=== PATIENT | female | born 1975 | race Caucasian/White ===

== ENCOUNTER 2017-07-28 20:38 | Observation (INO) | payer OTHER ==
[~2017-07-28] VITALS: Ht 167.6 cm; Wt 64.2 kg
[2017-07-28 22:01] LABS: BASOPHIL (%) 0.3 % (0-1); EOSINOPHIL (%) 0.9 % (0-5); HEMATOCRIT 31.6 % (36.0-46.0); HEMOGLOBIN 11.2 G/DL (11.9-15.5); LYMPHOCYTE (%) 54.6 % (15-42); LYMPHOCYTE COUNT 1.9 K/uL (1.0-2.8); MCH 30.3 PG (29.0-34.0); MCHC 35.4 G/DL (30.0-36.0); MCV 85.4 FL (83-99); MONOCYTE (%) 6.6 % (3-12); MONOCYTE COUNT 0.2 K/uL (0-0.8); NEUTROPHIL (%) 37.6 % (45-76); NEUTROPHIL COUNT 1.3 K/uL (1.8-6.4); PLATELET COUNT 146 K/uL (156-360); RBC DIS.WIDTH-CV 14.7 % (11.8-14.6); RBC DIS.WIDTH-SD 45.6 % (39-53); WHITE BLOOD COUNT 3.5 K/uL (4.1-10.2)
[2017-07-28 22:09] LABS: ALBUMIN 3.7 g/dL (3.2-4.8); CHLORIDE 97 mEq/L (99-109); POTASSIUM 4.6 mEq/L (3.7-5.4); SODIUM 129 mEq/L (136-147)
[2017-07-28 22:11] LABS: GLUCOSE 83 mg/dL (70-99)
[2017-07-28 22:12] LABS: TOTAL PROTEIN 6.5 g/dL (6.4-8.3)
[2017-07-28 22:13] LABS: TOTAL BILIRUBIN 0.2 mg/dL (0.0-1.0)
[2017-07-28 22:15] LABS: ALKALINE PHOSPHATASE 105 IU/L (3-129); CREATININE 0.7 mg/dL (0.6-1.3); GFR ESTIMATE (CALCULATED) > 59 mL/min/
[2017-07-28 22:16] LABS: UREA NITROGEN (BUN) 11 mg/dL (9-23)
[2017-07-28 22:17] LABS: AST (GOT) 8 IU/L (2-34)
[2017-07-28 22:18] LABS: ALT (GPT) 8 IU/L (3-49); CREATINE KINASE 38 IU/L (1-294); TOTAL CK 38 IU/L (1-294)
[2017-07-28 22:24] LABS: CK-MB 1.4 ng/mL (0.0-4.9); CKMB RELATIVE INDEX 3.7 (0.0-3.9); QUANTITATIVE HCG < 4.0 MIU/ML
[2017-07-28] MEDS ORDERED: BACLOFEN20 MG PO (23:02)
[2017-07-28] MEDS ORDERED: NEURONTIN600 MG PO (23:02)
[2017-07-28] MEDS ORDERED: PROMETHAZINE HC25 M1 PO (23:03)
[2017-07-28] MEDS ORDERED: OXTELLAR XR150 MG PO (23:03)
[2017-07-28] MEDS ORDERED: RITALIN10 MG PO (23:04)
[2017-07-28] MEDS ORDERED: MORPHINE SULFAT15 MG PO (23:04)
[2017-07-28] MEDS ORDERED: NEXIUM40 MG PO (23:04)
[2017-07-28] MEDS ORDERED: SUMATRIPTAN SU100 MG PO (23:05)
[2017-07-28] MEDS ORDERED: ZOLOFT100 MG PO (23:05)
[2017-07-28] MEDS ORDERED: MORPHINE SULFAT60 MG PO (23:05)
[2017-07-28] MEDS ORDERED: SUMATRIPTA4 MG/0.5 M SC (23:06)
[2017-07-28] MEDS ORDERED: LINZESS290 MCG PO (23:06)
[2017-07-28] MEDS ORDERED: ATARAX10 MG PO (23:07)
[2017-07-28] MEDS ORDERED: BENTYL10 MG PO (23:08)
[2017-07-28] MEDS ORDERED: PLEGRIDY P125 MCG/0. SC (23:08)
[2017-07-28] MEDS ORDERED: ZANTAC300 MG PO (23:09)
[2017-07-28] MEDS ORDERED: VIMPAT50 MG PO (23:09)
[2017-07-28] MEDS ORDERED: CALTRATE 600 +1 EAC1 PO (23:10)
[2017-07-28] MEDS ORDERED: TUMS500 MG PO (23:10)
[2017-07-28] MEDS ORDERED: DULCOLAX5 MG PO (23:11)
[2017-07-28] MEDS ORDERED: TYLENOL EXTRA500 MG PO (23:12)
[2017-07-28] MEDS ORDERED: SENNA8.6 MG PO (23:12)
[2017-07-28] MEDS ORDERED: FLEET ENEMA-AD118 ML PR (23:13)
[2017-07-29 00:58] LABS: APPEARANCE CLOUDY ((CLEAR)); BILIRUBIN NEGATIVE; BLOOD NEGATIVE; COLOR YELLOW ((YELLOW)); GLUCOSE (STRIP) NEGATIVE; KETONES NEGATIVE; LEUKOCYTES TRACE; NITRITE NEGATIVE; PROTEIN (STRIP) 30; SPECIFIC GRAVITY 1.032 (1.000-1.030); UROBILINOGEN 0.2 MG/DL (0.2-1.0)
[2017-07-29 01:07] LABS: BACTERIA RARE /HPF; EPITHELIAL CELLS 1+ /HPF; MUCUS TRACE /LPF; RED BLOOD CELLS 0-5 /HPF (0-5); UCUL ADDED? NO; WHITE BLOOD CELLS 0-5 /HPF (0-5)
[2017-07-29 02:05] VITALS: BP 129/66
[2017-07-29 05:08] LABS: HEMATOCRIT 29.6 % (36.0-46.0); HEMOGLOBIN 10.3 G/DL (11.9-15.5); MCH 29.9 PG (29.0-34.0); MCHC 34.8 G/DL (30.0-36.0); MCV 85.8 FL (83-99); PLATELET COUNT 136 K/uL (156-360); RBC DIS.WIDTH-CV 14.7 % (11.8-14.6); RBC DIS.WIDTH-SD 46.4 % (39-53); RED BLOOD COUNT 3.45 M/uL (3.80-5.20); WHITE BLOOD COUNT 2.8 K/uL (4.1-10.2)
[2017-07-29 05:12] VITALS: BP 124/69
[2017-07-29 05:32] LABS: CHLORIDE 97 MEQ/L (99-109); CREATININE 0.7 MG/DL (0.6-1.3); GFR ESTIMATE (CALCULATED) > 59 mL/min/; GLUCOSE 92 mg/dL (70-99); POTASSIUM 3.9 MEQ/L (3.7-5.4); SODIUM 130 MEQ/L (136-147); UREA NITROGEN (BUN) 11 mg/dL (9-23)
[2017-07-29 07:08] VITALS: BP 138/77
[2017-07-29 07:58] LABS: THYROTROPIN (TSH) 2.6 MIU/L (0.4-5.5)
[2017-07-29 11:27] VITALS: BP 167/87
[2017-07-29 15:28] VITALS: BP 140/84
[2017-07-29 19:38] VITALS: BP 121/74
[2017-07-30 00:17] VITALS: BP 141/88
[2017-07-30 04:35] VITALS: BP 110/54
[2017-07-30 05:25] LABS: BASOPHIL (%) 0 % (0-1); HEMATOCRIT 31.4 % (36.0-46.0); IMM.RETIC FRACTION 3.3 % (3-19); LYMPHOCYTE (%) 44.1 % (15-42); LYMPHOCYTE COUNT 1.3 K/uL (1.0-2.8); MCH 29.9 PG (29.0-34.0); MCV 85.3 FL (83-99); MONOCYTE (%) 5.7 % (3-12); MONOCYTE COUNT 0.2 K/uL (0-0.8); NEUTROPHIL (%) 49.2 % (45-76); NEUTROPHIL COUNT 1.5 K/uL (1.8-6.4); PLATELET COUNT 166 K/uL (156-360); RBC DIS.WIDTH-CV 14.8 % (11.8-14.6); RBC DIS.WIDTH-SD 46.1 % (39-53); RED BLOOD COUNT 3.68 M/uL (3.80-5.20); RETIC HGB EQUIVALENT 34.7 (28-36); RETICULOCYTE COUNT 0.5 % (0.5-1.8)
[2017-07-30 05:44] LABS: PTT 31.8 SEC (25-37)
[2017-07-30 05:55] LABS: CHLORIDE 105 MEQ/L (99-109); CREATININE 0.6 MG/DL (0.6-1.3); GFR ESTIMATE (CALCULATED) > 59 mL/min/; GLUCOSE 103 mg/dL (70-99); POTASSIUM 4.1 MEQ/L (3.7-5.4); SODIUM 135 MEQ/L (136-147); UREA NITROGEN (BUN) 5 mg/dL (9-23)
[2017-07-30 05:58] LABS: LACTATE DEHYDROGENASE 101 IU/L (20-246)
[2017-07-30 08:00] LABS: FERRITIN 34 NG/ML (10-291)
[2017-07-30 08:06] LABS: FOLIC ACID (FOLATE) 5.3 NG/ML (5.0-22.0)
[2017-07-30] MEDS ORDERED: VIMPAT50 MG PO (09:06)
[2017-07-30] MEDS ORDERED: CYANOCOBAL1000 MCG/2 SC (09:37)
[2017-07-30 11:09] LABS: HEPATITIS B SURFACE ANTIGEN Nonreactive; HEPATITIS C ANTIBODY Nonreactive
[2017-07-30 11:10] LABS: ANTI-HEPATITIS B CORE (TOTAL) Nonreactive; HIV-1/2 AB/AG COMBO Nonreactive
[2017-07-30 11:15] LABS: HEPATITIS B SURFACE ANTIBODY REACTIVE
[2017-07-30 11:53] VITALS: BP 126/74
== END 2017-07-30 15:50 | disposition home or self-care (01) ==
LOC: EME → EDBD 20:38 → EME 20:38 → EDOF 07-29 00:29 → ENRESERV 07-29 00:30 → 4SOUTH 07-29 01:41
PROVIDERS: Emergency Medicine; Hospitalist; Internal Medicine; Internal Medicine Medical Oncology
DX: G40.909 Epilepsy, unspecified, not intractable, without status epilepticus (principal); E87.1 Hypo-osmolality and hyponatremia; D61.818 Other pancytopenia; E53.8 Deficiency of other specified B group vitamins; F41.9 Anxiety disorder, unspecified; G35 Multiple sclerosis; K21.9 Gastro-esophageal reflux disease without esophagitis; D64.9 Anemia, unspecified; G89.29 Other chronic pain; R00.1 Bradycardia, unspecified; D69.6 Thrombocytopenia, unspecified; D72.819 Decreased white blood cell count, unspecified; F17.200 Nicotine dependence, unspecified, uncomplicated; Z87.442 Personal history of urinary calculi; H91.90 Unspecified hearing loss, unspecified ear; Z90.710 Acquired absence of both cervix and uterus; Z88.8 Allergy status to other drugs, medicaments and biological substances; Z91.048 Other nonmedicinal substance allergy status
CPT/HCPCS: 80048; 80053; 81003; 82436; 82550; 82553; 82607; 82728; 82746; 83090 90; 83615; 83921 90; 84133; 84300; 84443; 84702; 85025; 85027; 85046; 85610; 85730; 86704; 86706; 86803; 87340; 87389; 93005; 99281; 99285; G0378; J1650; J2405; J3420; J7030